=== PATIENT | male | born 1990 | race Caucasian/White ===

== ENCOUNTER 2019-08-21 02:01 | Observation (INO) | payer OTHER, SELFPAY ==
[2019-08-21] VITALS (10 sets, daily range): BP systolic 116–147; BP diastolic 65–91; PULSE 55–102; RESP 11–20; TEMP 36.5–36.7; O2SAT 96–100; BMI 19.5
--- NOTE | 2019-08-21 | ECHO_ITS ---
Patient Info Name: Rudy Ramos Age: 28 years : 1990 Gender: Male Ht: 70 in Wt: 160 lbs BSA: 1.89 m2 HR: 68 bpm BP: 132 / 75 mmHg Technical Quality: Good Exam Date: 08/21/2019 3:45 PM Exam Location: [facility] Pulmonary Exam Room: [facility] Patient Status: Outpatient Admit Date: 08/21/2019 Staff Ordering Physician: Brandon Uribe MD Dairy Worker: Vee Cadena RDCS Attending Provider: Brandon Uribe MD Exam Type: CA echo doppler color flow Study Info Indications - chest pain palpitations Complete two-dimensional, color flow and Doppler transthoracic echocardiogram is performed. Summary 1. Left ventricular systolic function is normal, estimated at 65-70%. 2. There is no increased left ventricular wall thickness. 3. 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 4. There is trace mitral valve regurgitation. Left Ventricle Left ventricular chamber dimension is normal. Left ventricular systolic function is normal, estimated at 65-70%. There is no increased left ventricular wall thickness. Left ventricular septal wall motion is normal. The left ventricular diastolic function is normal. Right Ventricle Right ventricular chamber dimension is normal. Right ventricular systolic function is normal. Left Atria Left atrial chamber dimension is normal. Right Atria Right atrial chamber dimension is normal. Aortic Valve The aortic valve is trileaflet. There is no aortic valve sclerosis. There is no aortic valve stenosis. There is no aortic valve regurgitation. Pulmonic Valve The pulmonic valve is normal. There is no pulmonic valve stenosis. There is no pulmonic regurgitation. 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 There is no mitral valve stenosis. There is trace mitral valve regurgitation. Tricuspid Valve The tricuspid valve leaflets are normal. There is no significant tricuspid valve stenosis. There is no tricuspid valve regurgitation. No pulmonary hypertension, estimated pulmonary arterial systolic pressure is 43 mmHg. Pericardium/Pleural The pericardium appears normal. There is no pericardial effusion. Aorta The aortic root size at the sinus of Valsalva is normal. The prox ascending aorta size is normal. Left Ventricular Outflow Tract Name Value Normal LVOT 2D LVOT Diameter 2.0 cm LVOT Doppler LVOT Peak Gradient 7 mmHg LVOT Mean Gradient 4 mmHg LVOT VTI 25 cm LVOT VTI/AV VTI Ratio 0.8 LVOT Stroke Volume 77 ml LVOT CO 16.8 l/min LVOT CI 8.9 l/min/m2 Pulmonic Valve Name Value Normal PV Doppler PV Peak Gradient 4 mmHg Mitral Valve
--- NOTE | ~2019-08-21 | XR_ITS ---
EXAMINATION: XR chest 2V DATE: 08/21/2019 02:51 INDICATION: Chest pain and shortness of breath TECHNIQUE: PA and lateral views of the chest were obtained. COMPARISON: None FINDINGS: The lungs are clear with no focal airspace opacities, pulmonary edema, pleural effusion or pneumothor ax. The cardiomediastinal silhouette is normal. Minimal thoracic levocurvature with mild spondylosis. IMPRESSION: 1. No acute cardiopulmonary disease. Reviewed, dictated and finalized at location A. [facility]
--- NOTE | 2019-08-21 02:11 | ED.ARRPALP ---
HPI - Arrhythmia/Palpitations General Chief Complaint: Arrhythmia/Palpitations Stated Complaint: palpitations Time Seen by Provider: 08/21/19 02:09 Source: patient and RN notes reviewed Mode of arrival: other Limitations: no limitations History of Present Illness HPI narrative: Pt is a 28 y/o male who presents to the ED with c/o his heart skipping beats that began two days ago (08/19/19). Pt states that he has not been able to sleep d/t his sx. Pt states that he had /10 left sided chest pain that had burning sensation, but his pain is now resolved. Pt denies any new stress or drinking a lot of caffeine. Pt last saw his PCP a couple months ago for the same sx. He notes that he felt like he had a pronounced heart beat. He states that he had a Holter monitor and had an abnormal result that he was recommended to see a slasher for. Pt states that he recently traveled to [place] and had a Marijuana edible 5mg about 1.5 weeks ago. Pt also reports lightheadedness, near syncope, and SOB, but denies nausea, vomiting, cough, fever, BLE swelling, and calf pain. complaint: skipped beats Onset (ago): day(s) (2) Severity: mild Associated symptoms: chest pain (left sided (resolved)), shortness of breath, near-syncope and other (lightheadedness) Related Data Home Medications Medication Instructions Recorded Confirmed No Home Medications 08/21/19 08/21/19 Allergies Allergy/AdvReac Type Severity Reaction Status Date / Time Penicillins Allergy Unknown Verified 08/21/19 05:12 Sulfa (Sulfonamide Allergy Unknown Verified 08/21/19 05:12 Antibiotics) Review of Systems Review of Systems: All systems reviewed & are unremarkable except as noted in HPI and below Constitutional: Constitutional: Denies fever(s) Cardiovascular: Cardiovascular: Reports chest pain (left sided (resolved)), Reports irregular heart rhythm and Reports lightheadedness Respiratory: Respiratory: Denies cough and Reports dyspnea Gastrointestinal: Gastrointestinal: Denies nausea and Denies vomiting Musculoskeletal: Musculoskeletal: Reports other (BLE swelling, calf pain) Neurologic: Reports syncope (near) [facility] Past Medical History Medical History (Updated 08/21/19 @ 05:33 by Magy Golden MD) Patient denies significant medical history Surgical History Surgical History (Updated 08/21/19 @ 02:49 by Peggy Osorio) No history of previous surgery Family History Family History (Updated 08/21/19 @ 06:36 by Rachelle Tidwell RN) Mother Lung cancer MOTHER OF LUNG CANCER Father Crohn's disease Social History Social History (Updated 08/21/19 @ 02:50 by Peggy Osorio) Smoking status: Never smoker Second hand tobacco smoke exposure: Yes Alcohol intake: current Drinks per week: 2 Substance use: current Substance use type: marijuana Last use: A Marijuana edible 5mg 1.5 weeks ago. Gender identity (if verbalized by the patient): Male Spiritual care concerns: No Agree to blood products: Yes Exam Narrative: Exam Narrative: GENERAL: Well-appearing, well-nourished, and in no acute distress. HEAD: Normocephalic, atraumatic EYES: PERRLA and EOMI, conjunctiva clear without discharge THROAT:Mucous membranes moist, Oropharynx normal without erythema, exudate, peritonsillar swelling or fluctuance NECK: Supple, without lymphadenopathy or mass RESPIRATORY: No respiratory distress, Airway patent, Respirations non-labored, Clear to auscultation without rales, rhonchi or wheeze HEART: Regular rate and rhythm. No murmur heard. Normal peripheral pulses. ABDOMEN: Soft, nontender, nondistended, normal active bowel sounds. No masses. No rebound or guarding, No organomegaly. EXTREMITIES: No edema, normal strength with full range of motion. SKIN: Warm, dry, normal color without rash NEURO: Alert and oriented x3. CN 2-12 grossly intact. No focal deficits. PSYCH: appears anxious Course Reevaluation(s) R
--- NOTE | 2019-08-21 02:37 | ECG_ITS ---
Measurements Intervals [place] Rate: 93 P: 67 ND: 149 QRS: 85 QRSD: 105 T: 45 QT: 348 QTc: 435 Interpretive Statements SINUS RHYTHM BASELINE ARTIFACT- I, II, III, AVR, AVL,A VF NORMAL ECG Electronically Signed On 08-21-2019 7:12:40 [employer] by Delio Hassan D.O.
[2019-08-21 02:54] LABS: Basophils Absolute Auto 0.1 K/mm3 (0.0-0.1); Basophils Percent Auto 0.9 % (0.2-1.2); Eosinophils Absolute Auto 0.2 K/mm3 (0-0.3); Eosinophils Percent Auto 2.1 % (0-4.4); Hematocrit 50.3 % (42.0-52.0); Immature Granulocyte Absolute 0.03 K/mm3 (0.00-0.031); Immature Granulocyte Percent A 0.3 % (0-0.5); Lymphocytes Absolute Auto 3.86 K/mm3 (0.9-3.2); Lymphocytes Percent Auto 39.8 % (18.3-44.2); Mean Corpuscular HGB Conc 33.8 g/dl (32-36); Mean Corpuscular Hemoglobin 31.5 pg (26-34); Mean Corpuscular Volume 93.1 fl (80-100); Mean Platelet Volume 10.6 fl (7.4-10.4); Monocytes Absolute Auto 0.7 K/mm3 (0.1-0.6); Monocytes Percent Auto 7.5 % (2.6-8.5); Neutrophils Absolute Auto 4.8 K/mm3 (1.3-6.7); Neutrophils Percent Auto 49.4 % (45.5-73.1); Platelet Count Result 295 k/mm3 (150-375); Red Cell Distribution Width 13.1 % (11.5-14.5); White Blood Count 9.7 K/mm3 (4.5-10.0)
[2019-08-21 03:06] LABS: Blood Urea Nitrogen 19 mg/dL (9-20); Calcium 9.7 mg/dL (8.4-10.2); Carbon Dioxide 26 mmol/L (22-30); Chloride 99 mmol/L (98-107); Estimated Glomerular Filt Rate > 60; Glucose 91 mg/dL (75-110); Magnesium 2.2 mg/dL (1.6-2.3); Potassium 3.7 mmol/L (3.4-5.0); Sodium 141 mmol/L (137-145)
[2019-08-21 03:09] LABS: Prothrombin Time 12.9 Seconds (11.1-14.7)
[2019-08-21 03:15] LABS: D Dimer 0.27 ug/mL (<0.48)
[2019-08-21 03:18] LABS: Troponin I < 0.012 ng/mL (0.000-0.034)
[2019-08-21 06:13] LABS: Troponin I < 0.012 ng/mL (0.000-0.034)
[2019-08-21] MEDS: ASPIRIN 81 MG CHEWABLE TABLET 324 MG PO (06:17)
--- NOTE | 2019-08-21 06:50 | ADMGEN ---
This patient, Rudy Ramos, was admitted to IMU Room 211-01 FROM ER 08/20/19 06. Patient/family oriented to hospital policies and general routines including ID bracelet, bed and alarms, visiting hours, pain management, procedures, bathroom and other care routines, personal items, smoking policy, room service/diet, and visiting hours. Valuables list has been completed. Information on how to activate the Rapid Response Team has been discussed. Patient/Family are encouraged to report perceived risks to care and to ask questions if they do not understand what they are told or what they should do.
[2019-08-21 09:22] LABS: Troponin I < 0.012 ng/mL (0.000-0.034)
--- NOTE | 2019-08-21 09:59 | PM.IMHP ---
H&P: HPI History of Present Illness Chief complaint: PALPATION,CHEST PAIN Narrative: Rudy Ramos is a 28 year old male with no significant past medical history who presented last night on this on hospital because of fast heart beating. According to the patient a few days ago he experienced fast heart beating associated with dizziness and chest discomfort. The symptoms are not present when he does not have fast heart rate. Patient stated his symptoms started about 2 months ago. at that time he had appointment with his PC (Dr. Helm, [facility]) who scheduled 30 day event monitor which was abnormal. He was referred to Cardiology for further evaluation. Unfortunately patient did not have time to to have cardiac evaluation since he went for vacations. Now since he is back from vacation he had episode of fast heart beating and was brought to [facility] last night. Patient does not have any history of cardiac problems no previous cardiac evaluation exept of event monitor at [facility] recently. Patient was seen and examined, chart was reviewed, case was discussed with patient's family and his nurse Review of Systems Review of Systems: All systems reviewed & are unremarkable except as noted in HPI and below Constitutional: Constitutional: Reports as per HPI Eyes: Eyes: Reports as per HPI ENT: Reports system reviewed and no additional complaints, except as documented and Reports as per HPI Cardiovascular: Cardiovascular: Reports as per HPI Respiratory: Respiratory: Reports as per HPI Gastrointestinal: Gastrointestinal: Reports as per HPI Genitourinary: Genitourinary: Reports as per HPI Musculoskeletal: Musculoskeletal: Reports as per HPI [facility] Past Medical History Medical History (Updated 08/21/19 @ 10:12 by Vidal Schreiber MD) Patient denies significant medical history Surgical History Surgical History (Updated 08/21/19 @ 02:49 by Peggy Osorio) No history of previous surgery Family History Family History (Updated 08/21/19 @ 10:10 by Vidal Schreiber MD) Mother Lung cancer MOTHER OF LUNG CANCER Father Crohn's disease Other Afib Social History Social History (Updated 08/21/19 @ 02:50 by Peggy Osorio) Smoking status: Never smoker Second hand tobacco smoke exposure: Yes Alcohol intake: current Drinks per week: 2 Substance use: current Substance use type: marijuana Last use: A Marijuana edible 5mg 1.5 weeks ago. Gender identity (if verbalized by the patient): Male Spiritual care concerns: No Agree to blood products: Yes Meds Home Medications and Allergies Home Medications Medication Instructions Recorded Confirmed Type No Home Medications 08/21/19 08/21/19 History Allergies Allergy/AdvReac Type Severity Reaction Status Date / Time Penicillins Allergy Unknown Verified 08/21/19 05:12 Sulfa (Sulfonamide Allergy Unknown Verified 08/21/19 05:12 Antibiotics) Vital Signs Vital Signs - 24 hr 08/21/19 02:12 08/21/19 03:49 08/21/19 05:13 Temperature 36.7 C Pulse Rate 102 H 68 63 Respiratory Rate 16 13 11 L Blood Pressure 147/91 H 119/65 116/75 Pulse Oximetry 100 96 96 08/21/19 06:10 08/21/19 06:47 08/21/19 08:00 Temperature 36.5 C 36.6 C Pulse Rate 73 65 64 Respiratory Rate 20 18 Blood Pressure 133/82 131/65 Pulse Oximetry 100 100 Exam Const: General: alert and awake; No acute distress HENMT: Head: normal to inspection and atraumatic Ears: hearing grossly normal bilaterally Face and sinus: normal facial exam Eyes: General: appearance normal, both eyes and all related structures Pupils: Equal, round and reactive pupils present EOM: EOMs intact bilaterally Neck: Neck: normal visual inspection and no JVD Chest: Chest palpation & inspection: normal inspection of the chest Resp: Effort & Inspection: normal respiratory effort and no respiratory distress Auscultation: clear to auscultation bilaterally Ca
[2019-08-21] MEDS: POTASSIUM CHLORIDE 20 MEQ PACKET (FOR LIQUID) PO (11:38)
--- NOTE | 2019-08-21 14:56 | PM.DS ---
DS: Diagnosis Admitting Diagnosis Admitting Diagnosis: Cardiac arrhythmia, unspecified DS: Summary Time Spent with Patient Time attestation: Pt admitted with episodes of palpitations during which he experienced CP, SOB and dizziness. Recent evaluation per his PC at [facility] (Dr. Sellers) including event monitor abnormal. Pt was supposed to have cardiac evaluation at [facility]. CE negative, no acute EKG changes. Tele during observation showed one episode of arrhythmia during which pt was symptomatic. He will be transferred to [facility] for further evaluation and management per family request. Pt was accepted for transfer by Dr. Steel (podiatry professor construction ironworker helper at [facility]). Exam Const: General: alert and awake; No acute distress HENMT: Head: normal to inspection and atraumatic Ears: hearing grossly normal bilaterally Face and sinus: normal facial exam Eyes: General: appearance normal, both eyes and all related structures Pupils: Equal, round and reactive pupils present EOM: EOMs intact bilaterally Neck: Neck: normal visual inspection and no JVD Chest: Chest palpation & inspection: normal inspection of the chest Resp: Effort & Inspection: normal respiratory effort and no respiratory distress Auscultation: clear to auscultation bilaterally Cardio: Jugular venous distension: no JVD Rate: regular rate Heart sounds: S1 normal heart sound present, S2 normal heart sound present and no murmurs GI: Inspection: normal to inspection GI Palp: Yes Soft to palpation, No Tenderness to palpation present (GI) and Yes No hepatosplenomegaly present Auscultation: normal bowel sounds Skin: General skin exam: normal color Neuro: Cranial nerves: Yes Equal, round and reactive pupils present Extrem: General: normal to inspection and no clubbing, cyanosis or edema DS: Data Data Completed and Pending Labs on day of discharge: Labs from last 24 hours 08/21/19 08/21/19 08/21/19 08:46 05:32 02:43 WBC RBC Hgb Hct MCV MCH MCHC RDW Plt Count MPV Immature Gran % (Auto) Neut % (Auto) Lymph % (Auto) [place] % (Auto) Eos % (Auto) Baso % (Auto) Lymph # (Auto) [place] # (Auto) Eos # (Auto) Baso # (Auto) Abs Immat Gran (auto) Absolute Neuts (auto) Absolute Nucleated RBC Nucleated RBC % PT INR APTT D-Dimer Sodium Potassium Chloride Carbon Dioxide BUN Creatinine Estim Creat Clear Calc Estimated GFR Glucose Calcium Magnesium 2.2 Troponin I < 0.012 < 0.012 08/21/19 08/21/19 08/21/19 02:43 02:43 02:43 WBC 9.7 RBC 5.40 Hgb 17.0 Hct 50.3 MCV 93.1 MCH 31.5 MCHC 33.8 RDW 13.1 Plt Count 295 MPV 10.6 H Immature Gran % (Auto) 0.3 Neut % (Auto) 49.4 Lymph % (Auto) 39.8 [place] % (Auto) 7.5 Eos % (Auto) 2.1 Baso % (Auto) 0.9 Lymph # (Auto) 3.86 H [place] # (Auto) 0.7 H Eos # (Auto) 0.2 Baso # (Auto) 0.1 Abs Immat Gran (auto) 0.03 Absolute Neuts (auto) 4.8 Absolute Nucleated RBC 0.0 Nucleated RBC % 0.0 PT INR APTT D-Dimer Cancelled Sodium 141 Potassium 3.7 Chloride 99 Carbon Dioxide 26 BUN 19 Creatinine 1.00 Estim Creat Clear Calc Not Reportable Estimated GFR > 60 Glucose 91 Calcium 9.7 Magnesium Troponin I < 0.012 08/21/19 02:42 WBC RBC Hgb Hct MCV MCH MCHC RDW Plt Count MPV Immature Gran % (Auto) Neut % (Auto) Lymph % (Auto) [place] % (Auto) Eos % (Auto) Baso % (Auto) Lymph # (Auto) [place] # (Auto) Eos # (Auto) Baso # (Auto) Abs Immat Gran (auto) Absolute Neuts (auto) Absolute Nucleated RBC Nucleated RBC % PT 12.9 INR 1.0 APTT 29.0 D-Dimer 0.27 Sodium Potassium Chloride Carbon Dioxide BUN Creatinine Estim Creat Clear Calc Estimated GFR Glucose Calcium Magnesium Troponin I Discharge Plan Discharge Attending physician on discha
--- NOTE | 2019-08-21 16:44 | PM.PNCARD ---
Subjective Date/time seen: 08/21/19 16:44 Patient is feeling okay now, no significant arrhythmia noted, echocardiogram showed normal left ventricular systolic function but with mitral valve prolapse. He will be discharged home on metoprolol 12.5 b.i.d., will arrange for stress echo as an outpatient. All the findings discussed with the patient as well as his family at the bedside, all agree with the above, will plan discharge home today, with follow-up stress echo as an outpatient Objective Data Vital Signs Vital Signs: Vital Signs - 24 hr 08/21/19 02:12 08/21/19 03:49 08/21/19 05:13 Temperature 36.7 C Pulse Rate 102 H 68 63 Respiratory Rate 16 13 11 L Blood Pressure 147/91 H 119/65 116/75 Pulse Oximetry 100 96 96 08/21/19 06:10 08/21/19 06:47 08/21/19 08:00 Temperature 36.5 C 36.6 C Pulse Rate 73 65 67 Respiratory Rate 20 18 Blood Pressure 133/82 131/65 Pulse Oximetry 100 100 08/21/19 10:00 08/21/19 12:00 Temperature 36.6 C Pulse Rate 71 68 Respiratory Rate 16 Blood Pressure 132/75 Pulse Oximetry 99 Intake/Output Intake/Output: Intake & Output 08/18/19 08/19/19 08/20/19 08/21/19 23:59 23:59 23:59 23:59 Intake Total 120 Balance 120 Meds/Results Medications: Active Medications Generic Name Dose Route Start Last Admin Trade Name Freq PRN Reason Stop Dose Admin Metoprolol Tartrate 12.5 mg 08/21/19 15:10 Lopressor PO Q12HR [facility] Radiology Results: ITS Impressions Chest X-Ray 08/21/19 07:13 IMPRESSION: 1. No acute cardiopulmonary disease. Labs Labs: Laboratory Results - last 24 hr 08/21/19 08/21/19 08/21/19 02:42 02:43 02:43 WBC 9.7 RBC 5.40 Hgb 17.0 Hct 50.3 MCV 93.1 MCH 31.5 MCHC 33.8 RDW 13.1 Plt Count 295 MPV 10.6 H Immature Gran % (Auto) 0.3 Neut % (Auto) 49.4 Lymph % (Auto) 39.8 [place] % (Auto) 7.5 Eos % (Auto) 2.1 Baso % (Auto) 0.9 Lymph # (Auto) 3.86 H [place] # (Auto) 0.7 H Eos # (Auto) 0.2 Baso # (Auto) 0.1 Abs Immat Gran (auto) 0.03 Absolute Neuts (auto) 4.8 Absolute Nucleated RBC 0.0 Nucleated RBC % 0.0 PT 12.9 INR 1.0 APTT 29.0 D-Dimer 0.27 Sodium 141 Potassium 3.7 Chloride 99 Carbon Dioxide 26 BUN 19 Creatinine 1.00 Estim Creat Clear Calc Not Reportable Estimated GFR > 60 Glucose 91 Calcium 9.7 Magnesium Troponin I < 0.012 08/21/19 08/21/19 08/21/19 02:43 02:43 05:32 WBC RBC Hgb Hct MCV MCH MCHC RDW Plt Count MPV Immature Gran % (Auto) Neut % (Auto) Lymph % (Auto) [place] % (Auto) Eos % (Auto) Baso % (Auto) Lymph # (Auto) [place] # (Auto) Eos # (Auto) Baso # (Auto) Abs Immat Gran (auto) Absolute Neuts (auto) Absolute Nucleated RBC Nucleated RBC % PT INR APTT D-Dimer Cancelled Sodium Potassium Chloride Carbon Dioxide BUN Creatinine Estim Creat Clear Calc Estimated GFR Glucose Calcium Magnesium 2.2 Troponin I < 0.012 08/21/19 08:46 WBC RBC Hgb Hct MCV MCH MCHC RDW Plt Count MPV Immature Gran % (Auto) Neut % (Auto) Lymph % (Auto) [place] % (Auto) Eos % (Auto) Baso % (Auto) Lymph # (Auto) [place] # (Auto) Eos # (Auto) Baso # (Auto) Abs Immat Gran (auto) Absolute Neuts (auto) Absolute Nucleated RBC Nucleated RBC % PT INR APTT D-Dimer Sodium Potassium Chloride Carbon Dioxide BUN Creatinine Estim Creat Clear Calc Estimated GFR Glucose Calcium Magnesium Troponin I < 0.012
== END 2019-08-21 18:10 | disposition short-term general hospital (02) ==
LOC: ANHED 05:33 → ANHIMU 05:48
PROVIDERS: Admitting Provider Specialist; Emergency Provider General Practice; PCP Internal Medicine; Visit Provider Internal Medicine Cardiovascular Disease
DX: R00.2 Palpitations (principal); R07.9 Chest pain, unspecified; I34.1 Nonrheumatic mitral (valve) prolapse; Z88.0 Allergy status to penicillin; Z88.2 Allergy status to sulfonamides
CPT/HCPCS: 36415; 71046; 80048; 83735; 84484; 85025; 85380; 85610; 85730; 93005; 93306; 99285; A9270; G0378